=== PATIENT | male | born 1960 | race Caucasian/White ===

== ENCOUNTER 2017-01-17 06:20 | Inpatient (IN) | payer OTHER ==
[~2017-01-17] VITALS: Ht 182.9 cm; Wt 118.7 kg
[2017-01-17] VITALS (10 sets, daily range): BP systolic 119–161; BP diastolic 69–95
[~2017-01-17 06:20] MED LIST: ATORVASTATIN CA10 MG PO; COLACE100 MG PO; HYDROCHLOROTHIA25 MG PO; LANTUS SC; LEXAPRO10 MG PO; LISINOPRIL10 MG PO; METFORMIN HCL500 MG PO; OMEPRAZOLE20 M1 PO; PERCOCET1 TA1 PO; VITAMIN D-31000 UNIT PO; [UNRECOGNIZED DRUG - CODE] TOP
--- NOTE | 2017-01-17 09:50 | Operative Report ---
Operative Report Date of Surgery: 01/17/17 Preoperate Diagnosis: recurrent incisional hernia Postoperative Diagnosis: recurrent multiple incisional hernias Anterior abdominal wall ad Surgeon: Antwon Griggs MD [employer] Surgeon: None Procedure Performed: Exploratory laparotomy. Lysis of anterior bowel wall adhesions. Repair small enterotomy. Repair of multiple midline incisional hernias. Anesthesia: Gen. 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 Patient subsequently underwent open laparotomy with colostomy takedown. Patient has undergone one previous incisional hernia repair. He presents with an upper midline incisional hernia and a lower midline incisional hernia. FINDING: The patient was noted to have dense small bowel adhesions to the anterior abdominal incision site, a small enterotomy was encountered and repaired. Patient was noted to have multiple midline small fascial defects with a larger hernia to the right and inferior of the midline. Surgical Technique: Patient brought to the operating room. The patient was placed in the dorsal supine position. Patient underwent general endotracheal anesthesia by the anesthesiology department. Once anesthesia taken effect, the patient's abdomen was prepped using Betadine and draped in a sterile fashion. At least 2 hernias had been previously identified in the preop holding area was once again identified in the operating room. The midline was infiltrated using local anesthetic. The previous midline scar was incised using a 10 blade and this incision was carried down through skin and scar tissue very carefully we entered the abdominal cavity to avoid injury to any of the underlying abdominal contents. The aforementioned findings noted. Using careful sharp dissection we were able to dissect the small bowel from the undersurface of the abdominal wall. In the process of doing so, a small enterotomy was identified in the antimesenteric surface of the small bowel and was closed in 2 layers, the inner layer through and through 3-0 Polysorb continuous suture. The suture line was then imbricated using seromuscular interrupted 3-0 silk. The lumen was palpated and found to be adequate. We continued with the lysis of adhesions. Once the process of freeing the small bowel from the intra-abdominal wall and we were able to palpate the midline and identify multiple midline hernias including the larger hernia inferiorly and just to the right of the lower midline. The larger hernia was closed separately from within the abdominal cavity using figure-of- eight 0 Maxon suture. The abdominal cavity was irrigated copiously with normal saline and antibiotic solution. Seprafilm was then placed within the abdominal cavity to protect the small bowel from the anterior abdominal wall. The midline was closed using running 0 Maxon suture incorporating the small multiple incisional fascial defects. Subcutaneous tissue was irrigated copious normal saline antibody solution. The skin approximated using 4-0 silk dermal Polysorb continuous suture. Sterile pressure occlusive dressings was placed on the abdomen. The patient was placed in abdominal binder. Because the instrument count was not performed preoperatively and abdominal x-ray was performed. No foreign bodies were identified on the x-ray. Patient was extubated and transferred to recovery room in stable condition. There were no intraoperative anesthetic complications. CONDITION: Stable. Anesthesia recovery room COMPLICATIONS: Iatrogenic neurotomy identified and repaired ESTIMATED BLOOD LOSS: Minimal FLUIDS:: 700 cc lactated Ringer DRAINS/PACKING: None SPECIMEN: None
--- NOTE | 2017-01-17 14:30 | DIAGNOSTIC IMAGING REPORT ---
PROCEDURE: XR ABDOMEN 1 VIEW INDICATION: Rule out retained instrument TECHNIQUE: Single view supine abdomen. COMPARISON: 12/19/2015 FINDINGS: No obvious retained surgical instruments or materials. Nonspecific bowel gas pattern. Moderate stool in the transverse and distal colon. Intact osseous structures. IMPRESSION: 1. No evidence of retained surgical instrument.
[2017-01-18] VITALS (7 sets, daily range): BP systolic 119–186; BP diastolic 79–100
--- NOTE | 2017-01-18 06:27 | Progress Note ---
Subjective General 56-year-old biological male (transgender) postop day #1. Incisional discomfort as expected. No shortness of breath or chest pain. Ambulatory. Patient states he is passing flatus. Physical Exam Vital Signs / I&Os Vital Signs Date Time Temp Pulse Resp B/P Pulse O2 O2 Flow FiO2 Ox Delivery Rate 01/18 0315 99.0 69 22 128/79 94 Room Air 0 I&O 01/17 0800 01/17 1600 01/18 0000 Intake Total 500 0 0 Output Total 0 550 Balance 500 0 -550 General Appearance Alert, Oriented X3, Cooperative, No acute distress Lungs Clear to auscultation Cardiovascular Regular rate and rhythm Abdomen Dressings dry and intact. Hypoactive bowel sounds. Extremities No edema Skin no peripheral cyanosis Assessment and Plan Problem List 1. STATUS POST OPEN REPAIR MULTIPLE RECURRENT INCISIONAL HERNIAS Plan Stable postop day 1. Continue present conservative management.
[2017-01-19 02:03] VITALS: BP 177/102
[2017-01-19 07:00] VITALS: BP 171/104
[2017-01-19] MEDS ORDERED: HYCET1 ML PO (09:56)
--- NOTE | 2017-01-19 09:57 | Provider's Discharge Care Plan ---
Problem, Goal, Plan Problem List 1. STATUS POST OPEN REPAIR MULTIPLE RECURRENT INCISIONAL HERNIAS Goals: Improve function, Therapeutic intervention Instructions: Follow up as directed, Take meds as directed
[2017-01-19 10:14] VITALS: BP 160/104
--- NOTE | 2017-01-19 11:12 | Progress Note ---
Subjective General 56-year-old biological male (transgender) postop day 2 open laparotomy, lysis of adhesions, repair enterotomy, repair of multiple incisional hernias. A little sore as expected. Ambulatory. Tolerating clear liquids. Having bowel movements and passing flatus. Physical Exam Vital Signs / I&Os Vital Signs Date Time Temp Pulse Resp B/P Pulse O2 O2 Flow FiO2 Ox Delivery Rate 01/19 1014 98.2 60 21 160/104 97 Room Air 01/19 0700 98.2 72 19 171/104 93 Room Air 01/19 0203 98.6 68 16 177/102 93 Room Air 01/18 2318 181/95 01/18 2245 162/100 01/18 2244 98.4 62 18 186/93 94 Room Air 01/18 1857 98.1 84 16 143/86 94 Room Air 01/18 1539 98.4 54 20 130/79 90 Room Air 01/18 1122 98.6 56 18 119/83 95 I&O 01/18 0800 01/18 1600 01/19 0000 Intake Total 3385 0 1384 Output Total 750 375 200 Balance 2635 -375 1184 General Appearance Alert, Oriented X3, Cooperative, No acute distress Lungs Clear to auscultation Cardiovascular Regular rate and rhythm Abdomen Normal bowel sounds, dressing change. Incision clean. No evidence of hematomas or seroma or cellulitis. Dressing reapplied. Extremities No edema Skin warm and dry Neurological No lateralizing signs Psych/Mental Status Mood normal Assessment and Plan Problem List 1. STATUS POST OPEN REPAIR MULTIPLE RECURRENT INCISIONAL HERNIAS Plan Stable postop day 1. Discharge home. Clear liquid diet for 24 hours and then slowly resume as tolerated. Wound care instructions given. We'll follow up with me in approximately 10 days. High set elixir 1 tablespoon every 6 hours when necessary pain.
--- NOTE | 2017-01-19 11:24 | Discharge Summary ---
Discharge Summary Report Admit Date 01/117001/17/17 Discharge Date 01/19/17 Admission Diagnosis Recurrent incisional hernias Discharge Diagnosis Recurrent incisional hernias Brief History 56-year-old biological male (transgender) who underwent emergent exploratory laparotomy with resection of his right colon and portion transverse colon with colostomy. Eventually underwent colostomy takedown with open laparotomy. Has had incisional hernia repairs in the past. Presents to the clinic with a bulge in his abdomen which has slowly increased in size over the past couple months. In the clinic he was diagnosed with a recurrent incisional hernia. Patient was also noted to have a smaller hernia in the superior aspect of his midline incision is well. Patient was scheduled for repair. Hospital Course Patient was admitted to [facility]. Taken to the operating room where under general anesthesia underwent open laparotomy, lysis of adhesions to the anterior abdominal wall, repair of iatrogenic enterotomy, and repair of multiple incisional hernias. Postoperative course was unremarkable. On postop day #1 he was passing flatus. Patient was started on a clear liquid diet. Patient was then passing flatus and having bowel movements. He was ambulatory. Patient was discharged home on postop day #2. Condition at time of discharge, ambulatory, stable vital signs. His diastolic pressure was up only because he had not taken his home blood pressure medications. His incision was clean with no evidence of cellulitis, hematoma or seroma. He was ambulatory and tolerating by mouth. No shortness of breath or chest pain. General Appearance Alert, Oriented X3, Cooperative, No acute distress Lungs Clear to auscultation Abdomen Incision clean. Positive bowel sounds Skin warm and dry Neurological urologically the patient was intact Psych/Mental Status normal middle psychological expression Discharge Instructions/Meds Patient was to stay on clear liquid diet for another 24 hours. Patient was to slowly advance his diet. Patient was to wear his abdominal binder 24 7. Patient was to remove his dressings in 3 days and take a shower. Patient was to return to [facility] in 10 days. Patient was to resume his home medications. Patient was discharged on Hycet elixir 1 tablespoon every 6 hours when necessary pain. Prescribed 12 ounces.
== END 2017-01-19 10:35 | disposition home or self-care (01) | DRG 223 ==
LOC: OR SRH 06:20 → OB SRH 06:21 → OR SRH 07:30 → CC SRH 09:20 → OB SRH 09:20 → OR SRH 09:20 → CC SRH 10:32
PROVIDERS: ADMIT Specialist
DX: K43.2 Incisional hernia without obstruction or gangrene (principal); K66.0 Peritoneal adhesions (postprocedural) (postinfection); K91.71 Accidental puncture and laceration of a digestive system organ or structure during a digestive system procedure; I10 Essential (primary) hypertension; E11.8 Type 2 diabetes mellitus with unspecified complications; E78.00 Pure hypercholesterolemia, unspecified; Z79.84 Long term (current) use of oral hypoglycemic drugs
CPT/HCPCS: 50002; 60001; 70002; 80102; 80212; 80852; 82702; 84038; 84041; 84532; 90047; 90074; 95059